=== PATIENT | male | born 1960 | race African-American/Black ===

== ENCOUNTER 2022-04-08 21:01 | Emergency (ER) | payer MEDICAID ==
[~2022-04-08] VITALS: Ht 182.9 cm; Wt 73.0 kg
[2022-04-08 21:16] VITALS: BP 138/100
[2022-04-09 00:12] LABS: BASOPHILS % 0.5 % (0.0-2.0); EOSINOPHILS % 0.8 % (0.0-5.0); HEMATOCRIT. 38.8 % (42.0-52.0); HEMOGLOBIN. 12.1 g/dL (14.0-18.0); LYMPHOCYTES % 15.2 % (20.0-50.0); MEAN CORPUSCULAR VOLUME 76.6 fL (80.0-94.0); MEAN PLATELET VOLUME 8.9 fl (7.4-10.4); MONOCYTES % 13.5 % (2.0-8.0); PLATELET 312 x1000/uL (130-400); RED BLOOD CELL COUNT 5.06 mill/uL (4.7-6.1); RED CELL DISTRIBUTION WIDTH 13.6 % (11.6-14.6)
[2022-04-09 00:15] LABS: CHLORIDE 102 mEq/L (98-107)
[2022-04-09] MEDS ORDERED: ACET-2708 MT ×3 (05:04→05:05)
[2022-04-09] MEDS ORDERED: GUAI-996 MT (05:04)
[2022-04-09] MEDS ORDERED: AMOX-494 MT (21:22)
== END 2022-04-09 05:18 | disposition home or self-care (01) ==
LOC: ER 21:01
DX: B34.9 Viral infection, unspecified (principal); D64.9 Anemia, unspecified; M54.50 Low back pain, unspecified; Z20.822 Contact with and (suspected) exposure to COVID-19
CPT/HCPCS: 36415; 71045; 80053; 85025; 87426; 87804; 99284; C9803